=== PATIENT | male | born 1955 | race Caucasian/White ===

== ENCOUNTER 2017-05-26 16:30 | Inpatient (IN) | payer BC ==
[~2017-05-26] VITALS: Ht 167.6 cm; Wt 125.1 kg
[2017-05-26 16:38] VITALS: BP 168/93; PULSE 84; RESP 16; TEMP 98.4; O2SAT 96
--- NOTE | 2017-05-26 18:41 | PD ---
HPI . Patient here for complaints of feeling bloated & gassy. Chief Complaint: Abdominal Pain Time Seen by Provider: 18:19 Travel History International Travel<30 days: No Contact w/Intl Traveler<30days: No Traveled to known affect area: No History of Present Illness HPI Patient is a 62 year old male who presents with a 1 week history of abdominal pain. Patient reports that last Friday he went to an urgent care center due to constipation and mentioned to the physician of when he did have stools they were black as tar. The urgent care physician recommended that the patient get an abdominal CT scan. Patient locates the abdominal pain to his lower left side. The symptoms have been constant and increasing in severity. He describes the pain as a stabbing pain as well as feeling bloated and gassy. Patient denies any aggravating factors but mentions that Miralax, Pepto-Bismal, and Exlax have assisted in him passing small, soft, pebble, and slinky stools that he described as black. Patient denies taking any iron supplements nor having an appetite. Patient denies any nausea, vomiting, diarrhea, flatulence. Allergies-Medications (Allergen,Severity, Reaction): Coded Allergies: No Known Allergies (Verified Allergy, Unknown, 05/26/17) Data Data Last Documented VS Vital Signs Date Time Temp Pulse Resp B/P (MAP) Pulse Ox O2 Delivery O2 Flow Rate FiO2 05/26/17 16:38 98.4 84 16 168/93 (118) 96 Orders Orders Urinalysis - C+S If Indicated (05/26/17 18:05) Basic Metabolic Panel (Bmp) (05/26/17 18:33) Complete Blood Count With Diff (05/26/17 18:33) Ct Abd/Pel W Iv Contrast(Rout) (05/26/17 18:33) Iv Access Insert/Monitor (05/26/17 18:33) Sodium Chloride 0.9% Flush (Ns Flush) (05/26/17 18:45) Morphine Inj (Morphine Inj) (05/26/17 18:45) Ondansetron Inj (Zofran Inj) (05/26/17 18:45) Labs Laboratory Tests Test 05/26/17 18:45 Mary Boyce MD May 26, 2017 18:41
--- NOTE | 2017-05-26 18:41 | PD ---
HPI Chief Complaint: Abdominal Pain Time Seen by Provider: 18:19 Travel History International Travel<30 days: No Contact w/Intl Traveler<30days: No Traveled to known affect area: No History of Present Illness HPI Patient is a 62 year old male who presents with a 1 week history of abdominal pain. Patient reports going to an urgent care center due to constipation and mentioned to the physician that whenever he had stools they were black as tar. The physician recommended that the patient get an abdominal CT scan. He locates the pain to the lower left side of his abdomen. He describes the pain as stabbing in nature, as well as feeling bloated and gassy. Patient denies any aggravating factors but mentions that taking Miralax, Pepto, and Exlax help him produce soft, small, pebble, and slinky stools that are black. Patient denies taking any iron supplement nor any recent changes in diet. Patient denies any vomiting, diarrhea, or flatulence. PFSH Social History Tobacco Use: No Allergies-Medications (Allergen,Severity, Reaction): Coded Allergies: No Known Allergies (Verified Allergy, Unknown, 05/26/17) Reported Meds & Prescriptions Reported Meds & Active Scripts Active Reported Testosterone Enanthate Inj (Testosterone Enanthate) 200 Mg/Ml Inj 100 Mg IM Q15D Tamsulosin (Tamsulosin HCl) 0.4 Mg Cap 0.8 Mg PO HS Tamsulosin (Tamsulosin HCl) 0.4 Mg Cap 0.8 Mg PO HS Metoprolol Tartrate 25 Mg Tab 25 Mg PO DAILY Metformin (Metformin HCl) 500 Mg Tab 500 Mg PO BIDPC Meloxicam 15 Mg Tab 15 Mg PO DAILY Lisinopril 10 Mg Tab 10 Mg PO DAILY Glimepiride 2 Mg Tab 2 Mg PO BIDAC Amlodipine (Amlodipine Besylate) 10 Mg Tab 10 Mg PO DAILY Review of Systems Except as stated in HPI: all other systems reviewed are Neg Gastrointestinal: Positive: Abdominal Pain, Constipation, Loss of Appetite, No : Vomiting, Diarrhea Physical Exam Narrative GENERAL: Patient is awake and alert and in no acute distress. Markedly obese. SKIN: warm/dry. Normal color. HEAD: Normocephalic. Atraumatic. EYES: Pupils equal and round. No scleral icterus. No injection or drainage. ENT: No nasal bleeding or discharge. Mucous membranes pink and moist. NECK: Trachea midline. Full range of motion without pain.. CARDIOVASCULAR: Regular rate and rhythm. RESPIRATORY: No accessory muscle use. Clear to auscultation. Breath sounds equal bilaterally. GASTROINTESTINAL: Abdomen soft. Left lower quadrant tenderness. No guarding or rebound. Bowel sounds present. Nondistended. RECTAL: He is noted to have perianal brown stool. No masses palpated on digital exam. No significant stool load in the rectal vault. : No inguinal hernia palpated. MUSCULOSKELETAL: No obvious deformities. NEUROLOGICAL: Awake and alert. No obvious cranial nerve deficits. Motor grossly within normal limits. Normal speech. PSYCHIATRIC: Appropriate mood and affect; insight and judgment normal. Data Data Last Documented VS Vital Signs Date Time Temp Pulse Resp B/P (MAP) Pulse Ox O2 Delivery O2 Flow Rate FiO2 05/26/17 19:42 84 18 160/84 (109) 98 Room Air 05/26/17 16:38 98.4 Orders Orders Urinalysis - C+S If Indicated (05/26/17 18:05) Basic Metabolic Panel (Bmp) (05/26/17 18:33) Complete Blood Count With Diff (05/26/17 18:33) Iv Access Insert/Monitor (05/26/17 18:33) Sodium Chloride 0.9% Flush (Ns Flush) (05/26/17 18:45) Morphine Inj (Morphine Inj) (05/26/17 18:45) Ondansetron Inj (Zofran Inj) (05/26/17 18:45) Ct Abd/Pel W/O Iv Contrast (05/26/17 18:33) Tamsulosin (Flomax) (05/26/17 21:30) Tamsulosin (Flomax) (05/27/17 09:00) Bedside Glucose IGOR.CSUGAR (05/26/17 21:26) Blood Glucose Goal (Criteria) (05/26/17 21:26) Hypoglycemia 70 Mg/Dl Or < (05/26/17 21:26) Notify Dr: Other (05/26/17 21:26) Dextrose 50% In Amanda (Vial) Inj (D50w (Vi (05/26/17 21:30) Glucagon Inj (Glucagon Inj) (05/26/17 21:30) Insulin Aspart Supplemtl Scale (Novolog (05/27/17 08:00) Admit To Inpatient (05/26/17 ) Vital Signs (Adult) Q4H (05/26/17 21:26) Activity Oob Ad Ghazala (05/26/17 21:26) Intake + Output IGOR.QSHIFT (05/26/17 21:26) Diet Regular Basic (05/27/17 Breakfast) Sodium Chlor 0.9% 1000 Ml Inj (Ns 1000 M (05/26/17 22:00) Sodium Chloride 0.9% Flush (Ns Flush) (05/26/17 21:30) Sodium Chloride 0.9% Flush (Ns Flush) (05/27/17 09:00) Ondansetron Inj (Zofran Inj) (05/26/17 22:00) Comprehensive Metabolic Panel (05/27/17 06:00) Complete Blood Count With Diff (05/27/17 06:00) Case Management Consult (05/26/17 21:26) Scd Bilateral/Knee High IGOR.BID (05/26/17 21:26) Siddhartha Bilateral/Knee High IGOR.QSHIFT (05/26/17 21:28) Acetaminophen (Tylenol) (05/26/17 22:00) Acetamin-Hydrocod 325-5 Mg ([place] 5-325 (05/26/17 22:00) Morphine Inj (Morphine Inj) (05/26/17 22:00) Docusate Sodium-Senna (Cadence-Colace) (05/27/17 09:00) Magnesium Hydroxide Liq (Milk Of Magnesi (05/26/17 22:00) Sennosides (Senokot) (05/26/17 22:00) Bisacodyl Supp (Dulcolax Supp) (05/26/17 22:00) Lactulose Liq (Lactulose Liq) (05/26/17 22:00) Inpatient Certification (05/26/17 ) Consult Urology (05/26/17 ) Glimepiride (Amaryl) (05/27/17 07:00) Metoprolol Tartrate (Lopressor) (05/27/17 09:00) Admit Order (Ed Use Only) (05/26/17 21:35) Admit Order (Ed Use Only) (05/26/17 21:37) Labs Laboratory Tests Test 05/26/17 18:45 05/26/17 19:40 White Blood Count 8.0 TH/MM3 Red Blood Count 4.83 MIL/MM3 Hemoglobin 12.9 GM/DL Hematocrit 40.6 % Mean Corpuscular Volume 84.1 FL Mean Corpuscular Hemoglobin 26.8 PG Mean Corpuscular Hemoglobin Concent 31.9 % Red Cell Distribution Width 17.0 % Platelet Count 313 TH/MM3 Mean Platelet Volume 7.3 FL Neutrophils (%) (Auto) 68.7 % Lymphocytes (%) (Auto) 15.4 % Monocytes (%) (Auto) 10.9 % Eosinophils (%) (Auto) 4.5 % Basophils (%) (Auto) 0.5 % Neutrophils # (Auto) 5.5 TH/MM3 Lymphocytes # (Auto) 1.2 TH/MM3 Monocytes # (Auto) 0.9 TH/MM3 Eosinophils # (Auto) 0.4 TH/MM3 Basophils # (Auto) 0.0 TH/MM3 CBC Comment DIFF FINAL Differential Comment Blood Urea Nitrogen 42 MG/DL Creatinine 2.60 MG/DL Random Glucose 90 MG/DL Calcium Level 9.2 MG/DL Sodium Level 137 MEQ/L Potassium Level 4.4 MEQ/L Chloride Level 102 MEQ/L Carbon Dioxide Level 29.0 MEQ/L Anion Gap 6 MEQ/L Estimat Glomerular Filtration Rate 25 ML/MIN Urine Color YELLOW Urine Turbidity CLEAR Urine pH 5.5 Urine Specific [place] 1.023 Urine Protein TRACE mg/dL Urine Glucose (UA) NEG mg/dL Urine Ketones NEG mg/dL Urine Occult Blood NEG Urine Nitrite NEG Urine Bilirubin NEG Urine Leukocyte Esterase NEG Urine WBC 0-2 /hpf Urine Squamous Epithelial Cells 0-5 /hpf Urine Amorphous Sediment SMALL Urine Mucus OCC /lpf Microscopic Urinalysis Comment CULT NOT INDICATED MDM Medical Decision Making Medical Screen Exam Complete: Yes Emergency Medical Condition: Yes Differential Diagnosis Differential diagnosis of abdominal pain includes but is not limited to gastritis, pancreatitis, hepatitis, gastroenteritis, gallbladder disease, constipation, urinary retention, UTI, peptic ulcer disease, diverticulitis or appendicitis Narrative Course Patient presents complaining with left lower quadrant abdominal pain. He has some tenderness of the left lower quadrant on exam. CT is pending as are routine abdominal pain labs. Care was turned over to Dr. Choe at 7:00 PM [facility] Point of Care Internal Pos. & Neg. Controls: Passed Fecal Specimen Occult Blood: Negative Diagnosis Primary Impression: Abdominal pain Qualified Codes: R10.32 - Left lower quadrant pain Condition: Stable Mary Boyce MD May 26, 2017 18:41
[2017-05-26] MEDS ORDERED: MORPHINE SULFATE 2 MG/ML INJ IV PUSH ONE (18:45)
[2017-05-26] MEDS ORDERED: ONDANSETRON HCL 4 MG/2 ML VIAL IV PUSH ONE (18:45)
[2017-05-26 18:54] LABS: AUTOMATED NEUTROPHIL # 5.5 TH/MM3 (1.8-7.7); BASOPHIL % 0.5 % (0.0-2.0); EOSINOPHIL # 0.4 TH/MM3 (0-0.4); EOSINOPHIL % 4.5 % (0.0-4.0); HEMATOCRIT 40.6 % (39.0-51.0); HEMOGLOBIN 12.9 GM/DL (13.0-17.0); LYMPH % 15.4 % (9.0-44.0); LYMPHOCYTE # 1.2 TH/MM3 (1.0-4.8); MEAN CELL VOLUME 84.1 FL (80.0-100.0); MEAN CORPUSCULAR HEMOGLOBIN 26.8 PG (27.0-34.0); MEAN CORPUSCULAR HGB CONC 31.9 % (32.0-36.0); MEAN PLATELET VOLUME 7.3 FL (7.0-11.0); MONO % 10.9 % (0.0-8.0); MONOCYTE # 0.9 TH/MM3 (0-0.9); NEUT % 68.7 % (16.0-70.0); PLATELET COUNT 313 TH/MM3 (150-450); RED BLOOD COUNT 4.83 MIL/MM3 (4.50-5.90)
[2017-05-26 19:06] LABS: CALCIUM 9.2 MG/DL (8.5-10.1)
[2017-05-26] MEDS ORDERED: LISI10TA3 PO (19:06)
[2017-05-26] MEDS ORDERED: TEST200I13 IM (19:06)
[2017-05-26] MEDS ORDERED: METO25TA3 PO (19:06)
[2017-05-26] MEDS ORDERED: TAMS0.4C4 PO (19:06)
[2017-05-26] MEDS ORDERED: AMLO10TA2 PO (19:06)
[2017-05-26] MEDS ORDERED: MELO15TA20 PO (19:06)
[2017-05-26] MEDS ORDERED: METF500T PO (19:06)
[2017-05-26] MEDS ORDERED: GLIM2TAB PO (19:06)
[2017-05-26 19:10] LABS: CREATININE 2.6 MG/DL (0.60-1.30)
[2017-05-26 19:42] VITALS: BP 160/84; PULSE 84; RESP 18; O2SAT 98
[2017-05-26 19:50] LABS: BILIRUBIN, URINE NEG (NEG); BLOOD, URINE NEG (NEG); GLUCOSE,URINE NEG (NEG); KETONE, URINE NEG (NEG); NITRITE,URINE NEG (NEG); PH, URINE 5.5 (5.0-8.5); URINE LEUKOCYTE ESTERASE NEG (NEG)
[2017-05-26 20:10] LABS: URINE COLOR YELLOW (YELLW/STRAW)
[2017-05-26 20:11] LABS: AMORPHOUS SEDIMENT, URINE SMALL; SQUAMOUS EPITHELIAL CELL URINE 0-5 /hpf (0-5); WBC, URINE 0-2 /hpf (0-5)
[2017-05-26 20:12] LABS: MUCUS URINE OCC /lpf (OCC)
--- NOTE | 2017-05-26 20:32 | RADRPT ---
EXAM DATE/TIME: 05/26/2017 19:43 [facility] COMPARISON: No previous studies available for comparison. INDICATIONS : Left lower quadrant abdominal pain. Constipation. ORAL CONTRAST: No oral contrast ingested. RADIATION DOSE: 22.39 CTDIvol (mGy) MEDICAL HISTORY : Diabetes mellitus type 2. Hypertension. SURGICAL HISTORY : Appendectomy. ENCOUNTER: Initial ACUITY: 1 day PAIN SCALE: 5/10 LOCATION: Left lower quadrant TECHNIQUE: Volumetric scanning of the abdomen and pelvis was performed. Using automated exposure control and ad justment of the mA and/or kV according to patient size, radiation dose was kept as low as reasonably achievable to obtain optimal diagnostic quality images. DICOM format image data is available electro nically for review and comparison. FINDINGS: There is evidence of acute obstructive uropathy of the left mid ureter secondary to a 4 mm calcified calculus resulting in mild ureteral pelvocaliectasis on the left. There is a 5 mm calcified lower freddy e nonobstructing left renal calculus. There is a 2.3 cm right adrenal nodule which may represent an a drenal adenoma. The left adrenal gland is unremarkable. Evaluation of the solid organs of the abdomen is limited by lack of intravenous contrast. Uncomplicated colonic diverticulosis is noted. No acute diverticulitis is noted. The prostate gland is enlarged. Degenerative changes are noted throughout th e thoracolumbar spine. CONCLUSION: 1. Acute obstructive uropathy of the left mid ureter secondary to a 4 mm calcified calculus resulting in mild ureteral pelvocaliectasis on the left. 2. 5 mm calcified nonobstructing lower pole left renal calculus. 3. 2.3 cm right adrenal nodule consistent with possible adrenal adenoma. 4. Uncomplicated colonic diverticulosis. 5. Degenerative changes throughout the thoracic and lumbar spine. 6. Enlarged prostate. Alirio Easton MD on May 26, 2017 at 20:26 Board Certified Radiologist. This report was verified electronically.
--- NOTE | 2017-05-26 21:20 | PD ---
Physical Exam Time Seen by Provider: 21:[address] Boyce left this patient with me to check the results of the CT scan and make disposition. The patient does not have a history of renal insufficiency and does not have a history of kidney stones. It is now 9:13 PM and the pain as a 4/10. Data Data Last Documented VS Vital Signs Date Time Temp Pulse Resp B/P (MAP) Pulse Ox O2 Delivery O2 Flow Rate FiO2 05/26/17 19:42 84 18 160/84 (109) 98 Room Air 05/26/17 16:38 98.4 Orders Orders Urinalysis - C+S If Indicated (05/26/17 18:05) Basic Metabolic Panel (Bmp) (05/26/17 18:33) Complete Blood Count With Diff (05/26/17 18:33) Iv Access Insert/Monitor (05/26/17 18:33) Sodium Chloride 0.9% Flush (Ns Flush) (05/26/17 18:45) Morphine Inj (Morphine Inj) (05/26/17 18:45) Ondansetron Inj (Zofran Inj) (05/26/17 18:45) Ct Abd/Pel W/O Iv Contrast (05/26/17 18:33) Tamsulosin (Flomax) (05/26/17 21:30) Tamsulosin (Flomax) (05/27/17 09:00) Bedside Glucose IGOR.CSUGAR (05/26/17 21:26) Blood Glucose Goal (Criteria) (05/26/17 21:26) Hypoglycemia 70 Mg/Dl Or < (05/26/17 21:26) Notify Dr: Other (05/26/17 21:26) Dextrose 50% In Amanda (Vial) Inj (D50w (Vi (05/26/17 21:30) Glucagon Inj (Glucagon Inj) (05/26/17 21:30) Low Novolog Scale (05/27/17 08:00) Admit To Inpatient (05/26/17 ) Vital Signs (Adult) Q4H (05/26/17 21:26) Activity Oob Ad Ghazala (05/26/17 21:26) Intake + Output IGOR.QSHIFT (05/26/17 21:26) Diet Regular Basic (05/27/17 Breakfast) Sodium Chlor 0.9% 1000 Ml Inj (Ns 1000 M (05/26/17 21:26) Sodium Chloride 0.9% Flush (Ns Flush) (05/26/17 21:30) Sodium Chloride 0.9% Flush (Ns Flush) (05/27/17 09:00) Ondansetron Inj (Zofran Inj) (05/26/17 21:30) Comprehensive Metabolic Panel (05/27/17 06:00) Complete Blood Count With Diff (05/27/17 06:00) Case Management Consult (05/26/17 21:26) Scd Bilateral/Knee High IGOR.BID (05/26/17 21:26) Siddhartha Bilateral/Knee High IGOR.QSHIFT (05/26/17 21:28) Acetaminophen (Tylenol) (05/26/17 21:30) Acetamin-Hydrocod 325-5 Mg ([place] 5-325 (05/26/17 21:30) Morphine Inj (Morphine Inj) (05/26/17 21:30) Docusate Sodium-Senna (Cadence-Colace) (05/27/17 09:00) Magnesium Hydroxide Liq (Milk Of Magnesi (05/26/17 21:30) Sennosides (Senokot) (05/26/17 21:30) Bisacodyl Supp (Dulcolax Supp) (05/26/17 21:30) Lactulose Liq (Lactulose Liq) (05/26/17 21:30) Inpatient Certification (05/26/17 ) Consult Urology (05/26/17 ) Glimepiride (Amaryl) (05/27/17 07:00) Metoprolol Tartrate (Lopressor) (05/27/17 09:00) Labs Laboratory Tests Test 05/26/17 18:45 05/26/17 19:40 White Blood Count 8.0 TH/MM3 Red Blood Count 4.83 MIL/MM3 Hemoglobin 12.9 GM/DL Hematocrit 40.6 % Mean Corpuscular Volume 84.1 FL Mean Corpuscular Hemoglobin 26.8 PG Mean Corpuscular Hemoglobin Concent 31.9 % Red Cell Distribution Width 17.0 % Platelet Count 313 TH/MM3 Mean Platelet Volume 7.3 FL Neutrophils (%) (Auto) 68.7 % Lymphocytes (%) (Auto) 15.4 % Monocytes (%) (Auto) 10.9 % Eosinophils (%) (Auto) 4.5 % Basophils (%) (Auto) 0.5 % Neutrophils # (Auto) 5.5 TH/MM3 Lymphocytes # (Auto) 1.2 TH/MM3 Monocytes # (Auto) 0.9 TH/MM3 Eosinophils # (Auto) 0.4 TH/MM3 Basophils # (Auto) 0.0 TH/MM3 CBC Comment DIFF FINAL Differential Comment Blood Urea Nitrogen 42 MG/DL Creatinine 2.60 MG/DL Random Glucose 90 MG/DL Calcium Level 9.2 MG/DL Sodium Level 137 MEQ/L Potassium Level 4.4 MEQ/L Chloride Level 102 MEQ/L Carbon Dioxide Level 29.0 MEQ/L Anion Gap 6 MEQ/L Estimat Glomerular Filtration Rate 25 ML/MIN Urine Color YELLOW Urine Turbidity CLEAR Urine pH 5.5 Urine Specific [place] 1.023 Urine Protein TRACE mg/dL Urine Glucose (UA) NEG mg/dL Urine Ketones NEG mg/dL Urine Occult Blood NEG Urine Nitrite NEG Urine Bilirubin NEG Urine Leukocyte Esterase NEG Urine WBC 0-2 /hpf Urine Squamous Epithelial Cells 0-5 /hpf Urine Amorphous Sediment SMALL Urine Mucus OCC /lpf Microscopic Urinalysis Comment CULT NOT INDICATED MDM Medical Record Reviewed: Yes Supervised Visit with PIERCE: No Interpretation(s) The CT abdomen/pelvis without IV contrast shows acute extremity uropathy of the left mid ureter secondary to a 4 mm calculus. Also noted is a 5 mm calcified nonobstructing lower pole left renal calculus. Also noted is a 2.3 cm right adrenal nodule, likely adrenal adenoma. It also shows uncomplicated colonic diverticulosis. Degenerative changes are noted throughout the thoracic and lumbar spine and he has an enlarged prostate. The basic metabolic profile shows a BUN of 42, creatinine 2.6 with GFR of 25. The rest of the basic metabolic profile is normal. Urinalysis is normal and culture is not indicated. The CBC shows a hemoglobin of 12.9 but is otherwise unremarkable. Differential Diagnosis Diverticulitis, urinary stone, urinary tract infection, colitis Narrative Course After 4 mg of morphine the patient's pain is around a 2/10. It is now 9:18 PM. Unfortunately, the patient did not know that he had renal insufficiency. The patient has no local primary care physician. 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 He plans to stay in the area through June. The patient has obstructive uropathy with acute renal insufficiency. He will be admitted to [facility] and, hopefully, will be seen by a fig caprifier while he is in the hospital. Diagnosis Primary Impression: Obstructive uropathy Additional Impression: Acute renal insufficiency Admitting Information Admitting Physician Requests: Admit Condition: Stable Stuart Choe MD May 26, 2017 21:20
[2017-05-26] MEDS ORDERED: DEXTROSE 50% IN WATER 50 ML VIAL(D50) IV PUSH PRN (21:30)
[2017-05-26] MEDS ORDERED: SODIUM CHLORIDE 0.9% FLUSH 10 ML FLUSH IV FLUSH PRN (21:30)
[2017-05-26] MEDS ORDERED: TAMSULOSIN HCL 0.4 MG CAP PO ONE (21:30)
[2017-05-26] MEDS ORDERED: GLUCAGON 1 MG/ML VIAL OTHER PRN (21:30)
[2017-05-26 22:00] VITALS: BP 166/82; PULSE 78; RESP 18; O2SAT 98
[2017-05-26] MEDS ORDERED: ACETAMINOPHEN/HYDROcodone 325 MG/5 MG TAB PO PRN (22:00)
[2017-05-26] MEDS ORDERED: ONDANSETRON HCL 4 MG/2 ML VIAL IVP PRN (22:00)
[2017-05-26] MEDS ORDERED: SENNOSIDES 8.6 MG TAB PO PRN (22:00)
[2017-05-26] MEDS ORDERED: LACTULOSE SYRUP 20 GM/30 ML CUP PO PRN (22:00)
[2017-05-26] MEDS ORDERED: ACETAMINOPHEN 325 MG TAB PO PRN (22:00)
[2017-05-26] MEDS ORDERED: BISACODYL 10 MG SUPP RECTAL PRN (22:00)
[2017-05-26] MEDS: SODIUM CHLOR 0.9% 1000 ML INJ 1,000 ML IV SCH (23:14)
[2017-05-26] MEDS: MORPHINE SULFATE 2 MG/ML INJ IV PUSH PRN (23:15)
[2017-05-27] VITALS (7 sets, daily range): BP systolic 144–188; BP diastolic 74–106; PULSE 71–89; RESP 18–20; TEMP 96.8–99.5; O2SAT 93–98
[2017-05-27] MEDS: MAGNESIUM HYDROXIDE SUSP 30 ML CUP PO PRN (02:01)
[2017-05-27] MEDS: SODIUM CHLORIDE 0.9% FLUSH 10 ML FLUSH IV FLUSH PRN ×2 (02:02→02:14)
[2017-05-27] MEDS: MORPHINE SULFATE 2 MG/ML INJ IV PUSH PRN ×2 (02:14→21:29)
[2017-05-27] MEDS: GLIMEPIRIDE 2 MG TAB PO SCH ×2 (06:03→15:18)
[2017-05-27 06:47] LABS: AUTOMATED NEUTROPHIL # 4.5 TH/MM3 (1.8-7.7); BASOPHIL % 0.5 % (0.0-2.0); EOSINOPHIL # 0.3 TH/MM3 (0-0.4); EOSINOPHIL % 5.1 % (0.0-4.0); HEMATOCRIT 34.5 % (39.0-51.0); LYMPH % 18.3 % (9.0-44.0); LYMPHOCYTE # 1.2 TH/MM3 (1.0-4.8); MEAN CELL VOLUME 83.2 FL (80.0-100.0); MEAN CORPUSCULAR HEMOGLOBIN 26.5 PG (27.0-34.0); MEAN CORPUSCULAR HGB CONC 31.9 % (32.0-36.0); MEAN PLATELET VOLUME 7.9 FL (7.0-11.0); MONOCYTE # 0.7 TH/MM3 (0-0.9); NEUT % 66.1 % (16.0-70.0); PLATELET COUNT 271 TH/MM3 (150-450); RED BLOOD COUNT 4.15 MIL/MM3 (4.50-5.90); RED CELL DISTRIBUTION WIDTH 15.7 % (11.6-17.2); WHITE BLOOD COUNT 6.7 TH/MM3 (4.0-11.0)
[2017-05-27 06:55] LABS: CHLORIDE 102 MEQ/L (98-107); SODIUM (NA) 137 MEQ/L (136-145)
[2017-05-27 07:03] LABS: CALCIUM 8.4 MG/DL (8.5-10.1)
[2017-05-27 07:04] LABS: ALBUMIN 3.1 GM/DL (3.4-5.0); BICARBONATE 29.1 MEQ/L (21.0-32.0); BLOOD UREA NITROGEN 35 MG/DL (7-18); GLUCOSE,RANDOM 152 MG/DL (74-106)
[2017-05-27 07:06] LABS: ALT (GPT) 33 U/L (12-78); AST (GOT) 17 U/L (15-37)
[2017-05-27 07:07] LABS: GLOMERULAR FILTRATION RATE 27 ML/MIN (>89)
[2017-05-27 07:08] LABS: TOTAL BILIRUBIN ADULT 0.9 MG/DL (0.2-1.0); TOTAL PROTEIN 7.3 GM/DL (6.4-8.2)
[2017-05-27 07:09] LABS: ALKALINE PHOSPHATASE 76 U/L (45-117)
[2017-05-27] MEDS: INSULIN ASPART SUPPLEMENTAL SCALE SQ SCH ×4 (08:00→21:00)
[2017-05-27] MEDS: SODIUM CHLOR 0.9% 1000 ML INJ 1,000 ML IV SCH ×2 (08:00→21:27)
[2017-05-27] MEDS: DOCUSATE SODIUM 50 MG/SENNA 8.6 MG TAB PO SCH ×2 (08:07→21:27)
[2017-05-27] MEDS: SODIUM CHLORIDE 0.9% FLUSH 10 ML FLUSH IV FLUSH SCH ×2 (08:08→21:27)
[2017-05-27] MEDS: TAMSULOSIN HCL 0.4 MG CAP PO SCH (08:08)
[2017-05-27] MEDS ORDERED: METOPROLOL TARTRATE 25 MG TAB PO SCH (09:00)
--- NOTE | 2017-05-27 12:47 | HHI.HP ---
[facility] Admission Diagnosis obstructive uropathy, acute renal insufficiency Diagnoses: (1) Obstructive uropathy Diagnosis: Principal (2) Abdominal pain Diagnosis: Principal (3) Acute renal insufficiency Diagnosis: Principal Chief Complaint: Abdominal pain, dark color stools Travel History International Travel<30 Days: No Contact w/Intl Traveler <30 Da: No Traveled to Known Affected Are: No History of Present Illness Written by Fred Choe, acting as scribe for Dr. Gonzalez on 05/27/17 at 12: 26. 62 year-old male with known history of hypertension, diabetes, enlarged prostate, low testosterone who presented to the hospital the request of urgent care physician because of dark color stools and abdominal pain. Patient indicates that his symptoms started one week ago. After going out and having a steak dinner, uzbek fries, clam chowder, 2 beers, 2 Jell-O shots he woke up at 3 AM in the morning with severe/sudden onset of stabbing left lower quadrant abdominal pain. Patient went to the bathroom and tried to have a bowel movement without success. He had some nausea and dry heaves without any improvement of his abdominal pain. Patient just thought he had some food poisoning from the clam chowder and constipated. The patient indicates that he normally has a bowel movement daily. He purchased some MiraLAX, Pepto-Bismol, Ex -Lax and used the medications. Over the next couple days he had noticed that he had been having abdominal discomfort with distention, bloating without any bowel movement. 2 days later the patient finally did have a bowel movement when he stated that his stools were black in coloration. The patient goes to a local urgent care to get his every 2 week testosterone injection. When he was there he spoke with the physician about his abdominal discomfort, constipation, dark color stools. Because of the mention of dark color stools it was recommended by the urgent care physician that the patient go to the ER for evaluation. Patient presents emergency department had workup done. CT the abdomen did indicate obstructive uropathy of the left ureter. Hemoccult was performed which was negative. Laboratory studies do indicate azotemia, acute versus chronic is unknown. Patient was recommended admission for the obstructive uropathy with urological consultation. 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 He did see his primary medical doctor prior to leaving [place] and at that time they were anticipating scheduling him for colonoscopy when he return in June. At the time evaluating the patient patient states that his pain is much improved. 2/10 on a pain scale. He has not had a bowel movement today. Review of Systems Gastrointestinal: COMPLAINS OF: Abdominal pain, Black stools, Constipation Except as stated in HPI: all other systems reviewed are Neg Past Family Social History Past Medical History Hypertension Diabetes Low testosterone Past Surgical History Appendectomy Reported Medications Reported Meds & Active Scripts Active Reported Testosterone Enanthate Inj (Testosterone Enanthate) 200 Mg/Ml Inj 100 Mg IM Q15D Tamsulosin (Tamsulosin HCl) 0.4 Mg Cap 0.8 Mg PO HS Tamsulosin (Tamsulosin HCl) 0.4 Mg Cap 0.8 Mg PO HS Metoprolol Tartrate 25 Mg Tab 25 Mg PO DAILY Metformin (Metformin HCl) 500 Mg Tab 500 Mg PO BIDPC Meloxicam 15 Mg Tab 15 Mg PO DAILY Lisinopril 10 Mg Tab 10 Mg PO DAILY Glimepiride 2 Mg Tab 2 Mg PO BIDAC Amlodipine (Amlodipine Besylate) 10 Mg Tab 10 Mg PO DAILY Allergies: Coded Allergies: No Known Allergies (Verified Allergy, Unknown, 05/26/17) Family History Reviewed and unremarkable. Patient states the mother father lived to their 80s in good health. Denies any heart disease, diabetes Social History Patient denies any tobacco use, illicit drug use. Does use alcohol occasionally Physical Exam Vital Signs Vital Signs Date Time Temp Pulse Resp B/P (MAP) Pulse Ox O2 Delivery O2 Flow Rate FiO2 05/27/17 08:00 96.8 75 20 163/83 (109) 93 05/27/17 01:30 99.5 71 18 147/93 (111) 93 05/27/17 01:18 82 18 98 05/27/17 01:17 82 18 98 Room Air 05/27/17 00:10 78 18 154/80 (104) 98 Room Air 05/26/17 22:00 78 18 166/82 (110) 98 Room Air 05/26/17 19:42 84 18 160/84 (109) 98 Room Air 05/26/17 16:38 98.4 84 16 168/93 (118) 96 Physical Exam GENERAL: Well-developed, well-nourished. alert and orientated HEENT: Head is normocephalic without any lesions or masses noted. Facial features are symmetric. Eyes: Pupils equal round reactive to light. Extraocular muscles are intact. Conjunctivae were clear. Oropharyngeal: Pharynx without any erythema edema. NECK: Supple without any masses. Trachea midline no deviation. CARDIAC: Regular rhythm, regular rate. S1/S2 are heard. No murmurs LUNGS: Clear to auscultation bilaterally. No wheeze, rhonchi or rales. No use of accessory muscles on inspiration or expiration. ABDOMEN: Soft, some discomfort w deep palpation of the left quadrant. Nondistended. Bowel sounds heard in all 4 quadrants. Negative rebound, negative guarding. no CVA tenderness EXTREMITIES: No edema, pulses are equal bilaterally. No cyanosis or clubbing NEUROLOGY: Mood and affect appear appropriate.moves all his extremities Laboratory Laboratory Tests Test 05/26/17 18:45 05/26/17 19:40 05/27/17 06:00 White Blood Count 8.0 6.7 Red Blood Count 4.83 4.15 Hemoglobin 12.9 11.0 Hematocrit 40.6 34.5 Mean Corpuscular Volume 84.1 83.2 Mean Corpuscular Hemoglobin 26.8 26.5 Mean Corpuscular Hemoglobin Concent 31.9 31.9 Red Cell Distribution Width 17.0 15.7 Platelet Count 313 271 Mean Platelet Volume 7.3 7.9 Neutrophils (%) (Auto) 68.7 66.1 Lymphocytes (%) (Auto) 15.4 18.3 Monocytes (%) (Auto) 10.9 10.0 Eosinophils (%) (Auto) 4.5 5.1 Basophils (%) (Auto) 0.5 0.5 Neutrophils # (Auto) 5.5 4.5 Lymphocytes # (Auto) 1.2 1.2 Monocytes # (Auto) 0.9 0.7 Eosinophils # (Auto) 0.4 0.3 Basophils # (Auto) 0.0 0.0 CBC Comment DIFF FINAL DIFF FINAL Differential Comment Blood Urea Nitrogen 42 35 Creatinine 2.60 2.40 Random Glucose 90 152 Calcium Level 9.2 8.4 Sodium Level 137 137 Potassium Level 4.4 4.4 Chloride Level 102 102 Carbon Dioxide Level 29.0 29.1 Anion Gap 6 6 Estimat Glomerular Filtration Rate 25 27 Urine Color YELLOW Urine Turbidity CLEAR Urine pH 5.5 Urine Specific [place] 1.023 Urine Protein TRACE Urine Glucose (UA) NEG Urine Ketones NEG Urine Occult Blood NEG Urine Nitrite NEG Urine Bilirubin NEG Urine Leukocyte Esterase NEG Urine WBC 0-2 Urine Squamous Epithelial Cells 0-5 Urine Amorphous Sediment SMALL Urine Mucus OCC Microscopic Urinalysis Comment CULT NOT INDICATED Total Protein 7.3 Albumin 3.1 Alkaline Phosphatase 76 Aspartate Amino Transf (AST/SGOT) 17 Alanine Aminotransferase (ALT/SGPT) 33 Total Bilirubin 0.9 Result Diagram: 05/27/1700 05/27/17 06 Imaging Last Impressions Abdomen/Pelvis CT 05/26/17 1833 Signed Impressions: Service Date/Time: Friday, May 26, 2017 19:43 - CONCLUSION: 1. Acute obstructive uropathy of the left mid ureter secondary to a 4 mm calcified calculus resulting in mild ureteral pelvocaliectasis on the left. 2. 5 mm calcified nonobstructing lower pole left renal calculus. 3. 2.3 cm right adrenal nodule consistent with possible adrenal adenoma. 4. Uncomplicated colonic diverticulosis. 5. Degenerative changes throughout the thoracic and lumbar spine. 6. Enlarged prostate. MD Jim Saez VTE Risk Assessment Caprini VTE Risk Assessment: Mod/High Risk (score >= 2) Caprini Risk Assessment Model Point Value = 1 Point Value = 2 Point Value = 3 Point Value = 5 Age 41-60 Minor surgery BMI > 25 kg/m2 Swollen legs Varicose veins or History of unexplained or recurrent spontaneous Oral contraceptives or hormone replacement Sepsis (< 1 month) Serious lung disease, including pneumonia (< 1 month) Abnormal pulmonary function Acute myocardial infarction Congestive heart failure (< 1 month) History of inflammatory bowel disease Medical patient at bed rest Age 61-74 Arthroscopic surgery Major open surgery (> 45 min) Laparoscopic surgery (> 45 min) Malignancy Confined to bed (> 72 hours) Immobilizing plaster cast Central venous access Age >= 75 History of VTE Family history of VTE Factor V Leiden Prothrombin [id number] Lupus anticoagulant Anticardiolipin antibodies Elevated serum homocysteine Heparin-induced thrombocytopenia Other congenital or acquired thrombophilia Stroke (< 1 month) Elective arthroplasty Hip, pelvis, or leg fracture Acute spinal cord injury (< 1 month) Prophylaxis Regimen Total Risk Factor Score Risk Level Prophylaxis Regimen 0-1 Low Early ambulation 2 Moderate Order ONE of the following: *Sequential Compression Device (SCD) *Heparin 5000 units SQ BID 3-4 Higher Order ONE of the following medications: *Heparin 5000 units SQ TID *Enoxaparin/Lovenox 40 mg SQ daily (WT < 150 kg, CrCl > 30 mL/min) *Enoxaparin/Lovenox 30 mg SQ daily (WT < 150 kg, CrCl > 10-29 mL/min) *Enoxaparin/Lovenox 30 mg SQ BID (WT < 150 kg, CrCl > 30 mL/min) AND/OR *Sequential Compression Device (SCD) 5 or more Highest Order ONE of the following medications: *Heparin 5000 units SQ TID (Preferred with Epidurals) *Enoxaparin/Lovenox 40 mg SQ daily (WT < 150 kg, CrCl > 30 mL/min) *Enoxaparin/Lovenox 30 mg SQ daily (WT < 150 kg, CrCl > 10-29 mL/min) *Enoxaparin/Lovenox 30 mg SQ BID (WT < 150 kg, CrCl > 30 mL/min) AND *Sequential Compression Device (SCD) Assessment and Plan Assessment and Plan 62-year-old male who presented to hospital with abdominal pain, dark color stools at the quest of urgent care physician Obstructive uropathy CT scan does indicate obstructive uropathy and left mid ureter secondary 4 mm calcified calculus and enlarged prostate Continue IV fluids, pain control Strain all urine Urology consulted for recommendations Azotemia, unknown chronic versus acute from obstructive uropathy CT scan does not indicate any hydronephrosis, Continue follow renal function Continue IV hydration Could be chronic kidney disease from hypertension, diabetes follow-up renal bladder ultrasound Dark color stools Most Likely secondary to Pepto-Bismol use Hemoccult was negative Monitor hemoglobin and hematocrit Patient already going to be scheduled in [place] for colonoscopy upon his return Avoid NSAIDs Hypertension Home medication has been continued Lisinopril on hold due to renal function Diabetes Accu-Cheks with sliding scale insulin Glimepiride continued Diabetic diet Enlarged prostate Flomax continued DVT prevention Sequential compression devices, avoid chemical prophylaxis at this time due to possible need for surgical intervention This note was transcribed by kaleb Choe. I, Dr. Sil Gonzalez personally performed the history, physical exam, and medical decision making; and confirmed the accuracy of the information in the transcribed note. Authenticated by Dr. Sil Gonzalez on 05/27/17 at 12:26 Code Status Full Code Discussed Condition With Patient, nursing staff Physician Certification 2 Midnight Certification Type: Admission for Inpatient Services Order for Inpatient Services The services are ordered in accordance with Medicare regulations or non- Medicare payer requirements, as applicable. In the case of services not specified as inpatient-only, they are appropriately provided as inpatient services in accordance with the 2-midnight benchmark. Estimated LOS (days): 2 days is the estimated time the patient will need to remain in the hospital, assuming treatment plan goals are met and no additional complications. Post-Hospital Plan: Not yet determined Problem Qualifiers (1) Abdominal pain: Qualified Codes: R10.32 - Left lower quadrant pain Fred Choe May 27, 2017 12:47 Sil Gonzalez MD May 27, 2017 16:21
--- NOTE | 2017-05-27 16:03 | RADRPT ---
EXAM DATE/TIME: 05/27/2017 14:35 [facility] COMPARISON: No previous studies available for comparison. INDICATIONS : Abnormal labs. MEDICAL HISTORY : Hypertension. Renal calculi. Arthritis. Diabetes. SURGICAL HISTORY : Appendectomy. ENCOUNTER: Initial ACUITY: 2 days PAIN SCORE: 4/10 LOCATION: Bilateral flank MEASUREMENTS: RIGHT KIDNEY: 12.7 x 6.3 x 6.5 cm LEFT KIDNEY: 14.1 x 5.7 x 7.9 cm FINDINGS: RIGHT KIDNEY: Renal cortex is normal in thickness and borderline increased echotexture. No hydronephrosis, stone, or mass. LEFT KIDNEY: Renal cortex is normal in thickness and borderline increased echotexture. No mass. Slight prominenc e left collecting system. Echogenic calculus lower pole measures 10 mm. BLADDER: Within normal limits given the degree of distension. CONCLUSION: 1. Mild prominence left collecting system. 2. Nonobstructing calculus lower pole left kidney measures 10 mm. 3. Kidneys are borderline echogenic which can be seen with medical renal disease. Grady Hodge MD on May 27, 2017 at 15:59 Board Certified Radiologist. This report was verified electronically.
[2017-05-27] MEDS ORDERED: TAMS0.4C4 PO (17:17)
[2017-05-27] MEDS ORDERED: PHEN0.4T PO (17:17)
[2017-05-27] MEDS ORDERED: PERC5TAB12 PO (17:17)
--- NOTE | 2017-05-27 17:20 | PD.CONS ---
[facility] Service Urology Consult Requested By Dr. Jc Reason for Consult Left ureteral calculus Primary Care Physician Unknown Diagnosis: (1) Obstructive uropathy ICD Code: N13.9 - Obstructive and reflux uropathy, unspecified (2) Abdominal pain ICD Code: R10.9 - Unspecified abdominal pain (3) Acute renal insufficiency ICD Code: N28.9 - Disorder of kidney and ureter, unspecified History of Present Illness 62-year-old gentleman presented to the emergency room acute onset left flank pain. Workup included a CT scan stone protocol that demonstrated a 4 mm mid left ureteral calculus as well as a 5 mm left lower pole renal calculus. Once that the left flank pain started approximately 1 week prior to admission. When the symptoms became severe he presented to the emergency room for evaluation. Patient does have a urologic history for BPH and low testosterone. He denies a prior history of renal calculi. At the time of consultation, the patient's pain was adequately controlled. He continued to complain of some discomfort involving the tip of his penis and left testicle. Review of Systems Constitutional: DENIES: Fever, Chills Cardiovascular: DENIES: Chest pain Gastrointestinal: COMPLAINS OF: Abdominal pain (left lower quadrant) Genitourinary: DENIES: Hematuria Musculoskeletal: COMPLAINS OF: Back pain (left side) Except as stated in HPI: all other systems reviewed are Neg Past Family Social History Past Medical History BPH Hypogonadism Diabetes Hypertension Past Surgical History Status post appendectomy Reported Medications Refer to EMR Allergies: Coded Allergies: No Known Allergies (Verified Allergy, Unknown, 05/26/17) Active Ordered Medications Refer to EMR Family History Reviewed and noncontributory Social History Occasional alcohol use Denies tobacco or history intravenous drug abuse. Physical Exam Vital Signs Date Time Temp Pulse Resp B/P (MAP) Pulse Ox O2 Delivery O2 Flow Rate FiO2 05/27/17 12:00 97.1 74 20 144/87 (106) 94 05/27/17 08:00 96.8 75 20 163/83 (109) 93 05/27/17 01:30 99.5 71 18 147/93 (111) 93 05/27/17 01:18 82 18 98 05/27/17 01:17 82 18 98 Room Air 05/27/17 00:10 78 18 154/80 (104) 98 Room Air 05/26/17 22:00 78 18 166/82 (110) 98 Room Air 05/26/17 19:42 84 18 160/84 (109) 98 Room Air Physical Exam GENERAL: This is a well-nourished, well-developed patient, in no apparent distress. SKIN: No rashes, ecchymoses or lesions. Cool and dry. HEAD: Atraumatic. Normocephalic. No temporal or scalp tenderness. EYES: Pupils equal round and reactive. Extraocular motions intact. No scleral icterus. No injection or drainage. ENT: Nose without bleeding, purulent drainage or septal hematoma. Throat without erythema, tonsillar hypertrophy or exudate. Uvula midline. Airway patent. NECK: Trachea midline. No JVD or lymphadenopathy. Supple, nontender, no meningeal signs. CARDIOVASCULAR: Regular rate and rhythm without murmurs, gallops, or rubs. RESPIRATORY: Clear to auscultation. Breath sounds equal bilaterally. No wheezes , rales, or rhonchi. GASTROINTESTINAL: Abdomen soft, non-tender, nondistended. No hepato-splenomegaly , or palpable masses. No guarding. GENITOURINARY: No CVA tenderness, bladder not distended MUSCULOSKELETAL: Extremities without clubbing, cyanosis, or edema. No joint tenderness, effusion, or edema noted. No calf tenderness. Negative Homans sign bilaterally. NEUROLOGICAL: Awake and alert. Cranial nerves II through XII intact. Motor and sensory grossly within normal limits. Five out of 5 muscle strength in all muscle groups. Normal speech. Lab results reviewed: Yes Laboratory Tests Test 05/26/17 18:45 05/26/17 19:40 05/27/17 06:00 White Blood Count 8.0 6.7 Red Blood Count 4.83 4.15 Hemoglobin 12.9 11.0 Hematocrit 40.6 34.5 Mean Corpuscular Volume 84.1 83.2 Mean Corpuscular Hemoglobin 26.8 26.5 Mean Corpuscular Hemoglobin Concent 31.9 31.9 Red Cell Distribution Width 17.0 15.7 Platelet Count 313 271 Mean Platelet Volume 7.3 7.9 Neutrophils (%) (Auto) 68.7 66.1 Lymphocytes (%) (Auto) 15.4 18.3 Monocytes (%) (Auto) 10.9 10.0 Eosinophils (%) (Auto) 4.5 5.1 Basophils (%) (Auto) 0.5 0.5 Neutrophils # (Auto) 5.5 4.5 Lymphocytes # (Auto) 1.2 1.2 Monocytes # (Auto) 0.9 0.7 Eosinophils # (Auto) 0.4 0.3 Basophils # (Auto) 0.0 0.0 CBC Comment DIFF FINAL DIFF FINAL Differential Comment Blood Urea Nitrogen 42 35 Creatinine 2.60 2.40 Random Glucose 90 152 Calcium Level 9.2 8.4 Sodium Level 137 137 Potassium Level 4.4 4.4 Chloride Level 102 102 Carbon Dioxide Level 29.0 29.1 Anion Gap 6 6 Estimat Glomerular Filtration Rate 25 27 Urine Color YELLOW Urine Turbidity CLEAR Urine pH 5.5 Urine Specific [place] 1.023 Urine Protein TRACE Urine Glucose (UA) NEG Urine Ketones NEG Urine Occult Blood NEG Urine Nitrite NEG Urine Bilirubin NEG Urine Leukocyte Esterase NEG Urine WBC 0-2 Urine Squamous Epithelial Cells 0-5 Urine Amorphous Sediment SMALL Urine Mucus OCC Microscopic Urinalysis Comment CULT NOT INDICATED Total Protein 7.3 Albumin 3.1 Alkaline Phosphatase 76 Aspartate Amino Transf (AST/SGOT) 17 Alanine Aminotransferase (ALT/SGPT) 33 Total Bilirubin 0.9 Result Diagram: 05/27/17 0600 05/27/17 0600 Personally reviewed images: Yes Imaging Last Impressions Renal Ultrasound 05/27/17 0000 Signed Impressions: Service Date/Time: Saturday, May 27, 2017 14:35 - CONCLUSION: 1. Mild prominence left collecting system. 2. Nonobstructing calculus lower pole left kidney measures 10 mm. 3. Kidneys are borderline echogenic which can be seen with medical renal disease. Grady Hodge MD Abdomen/Pelvis CT 05/26/17 1833 Signed Impressions: Service Date/Time: Friday, May 26, 2017 19:43 - CONCLUSION: 1. Acute obstructive uropathy of the left mid ureter secondary to a 4 mm calcified calculus resulting in mild ureteral pelvocaliectasis on the left. 2. 5 mm calcified nonobstructing lower pole left renal calculus. 3. 2.3 cm right adrenal nodule consistent with possible adrenal adenoma. 4. Uncomplicated colonic diverticulosis. 5. Degenerative changes throughout the thoracic and lumbar spine. 6. Enlarged prostate. Alirio Easton MD Assessment and Plan Assessment and Plan Urologic impression: #1 obstructing 4 mm left midureteral calculus that should pass spontaneously #2 5 mm left lower pole renal calculus Recommendations: #1 continue with analgesic support #2 continue with Flomax #3 continue to strain urine until stone #4 may discharge home when pain managed with oral medications #5 office follow up within the next 1-2 weeks [id number] Problem Qualifiers (1) Abdominal pain: Qualified Codes: R10.32 - Left lower quadrant pain Emmanuel Harris MD May 27, 2017 17:20
[2017-05-27] MEDS ORDERED: cloNIDine HCL 0.1 MG TAB PO ONE (22:15)
[2017-05-28] VITALS: BP 181/101; PULSE 79; RESP 20; TEMP 96.9; O2SAT 95
[2017-05-28 01:00] VITALS: BP 156/81
[2017-05-28] MEDS: MORPHINE SULFATE 2 MG/ML INJ IV PUSH PRN (02:18)
[2017-05-28] MEDS: SODIUM CHLORIDE 0.9% FLUSH 10 ML FLUSH IV FLUSH PRN (02:18)
[2017-05-28 06:39] LABS: AUTOMATED NEUTROPHIL # 5.4 TH/MM3 (1.8-7.7); BASOPHIL % 0.5 % (0.0-2.0); EOSINOPHIL # 0.4 TH/MM3 (0-0.4); EOSINOPHIL % 5.2 % (0.0-4.0); HEMATOCRIT 34.9 % (39.0-51.0); HEMOGLOBIN 11.1 GM/DL (13.0-17.0); LYMPHOCYTE # 1.3 TH/MM3 (1.0-4.8); MEAN CELL VOLUME 83.9 FL (80.0-100.0); MEAN CORPUSCULAR HEMOGLOBIN 26.7 PG (27.0-34.0); MEAN CORPUSCULAR HGB CONC 31.9 % (32.0-36.0); MEAN PLATELET VOLUME 7.5 FL (7.0-11.0); MONO % 8.7 % (0.0-8.0); MONOCYTE # 0.7 TH/MM3 (0-0.9); NEUT % 68.6 % (16.0-70.0); PLATELET COUNT 270 TH/MM3 (150-450); RED BLOOD COUNT 4.16 MIL/MM3 (4.50-5.90); RED CELL DISTRIBUTION WIDTH 16.3 % (11.6-17.2); WHITE BLOOD COUNT 7.8 TH/MM3 (4.0-11.0)
[2017-05-28] MEDS: SODIUM CHLOR 0.9% 1000 ML INJ 1,000 ML IV SCH (06:39)
[2017-05-28] MEDS: GLIMEPIRIDE 2 MG TAB PO SCH (06:39)
[2017-05-28 06:41] LABS: CALCIUM 8.6 MG/DL (8.5-10.1)
[2017-05-28 06:42] LABS: BICARBONATE 27.2 MEQ/L (21.0-32.0)
[2017-05-28 06:45] LABS: CREATININE 1.9 MG/DL (0.60-1.30)
[2017-05-28] MEDS: MAGNESIUM HYDROXIDE SUSP 30 ML CUP PO PRN (06:46)
[2017-05-28 08:00] VITALS: BP 187/122; PULSE 82; RESP 16; TEMP 97.3; O2SAT 96
[2017-05-28] MEDS ORDERED: cloNIDine HCL 0.1 MG TAB PO PRN (08:30)
[2017-05-28] MEDS: INSULIN ASPART SUPPLEMENTAL SCALE SQ SCH ×2 (08:33→12:00)
[2017-05-28] MEDS: DOCUSATE SODIUM 50 MG/SENNA 8.6 MG TAB PO SCH (08:36)
[2017-05-28] MEDS: SODIUM CHLORIDE 0.9% FLUSH 10 ML FLUSH IV FLUSH SCH (08:36)
[2017-05-28] MEDS: TAMSULOSIN HCL 0.4 MG CAP PO SCH (08:36)
[2017-05-28] MEDS ORDERED: METOPROLOL TARTRATE 25 MG TAB PO SCH (09:00)
[2017-05-28] MEDS ORDERED: PNEUMOCOCCAL POLYVALENT INJ 25 MCG/0.5 ML SYR IM ONE (10:00)
[2017-05-28] MEDS ORDERED: GLIM1TAB PO (10:10)
--- NOTE | 2017-05-28 10:21 | HHI.DS ---
Discharge Summary Admission Date May 26, 2017 at 21:37 Discharge Date: May 28, 2017 Admitting Diagnosis obstructive uropathy, acute renal insufficiency (1) Obstructive uropathy ICD Code: N13.9 - Obstructive and reflux uropathy, unspecified Diagnosis: Principal Status: Acute (2) Abdominal pain ICD Code: R10.9 - Unspecified abdominal pain Diagnosis: Principal Status: Acute (3) Acute renal insufficiency ICD Code: N28.9 - Disorder of kidney and ureter, unspecified Diagnosis: Principal Status: Acute Procedures none Brief History - From Admission Written by Fred Choe, acting as scribe for Dr. Gonzalez on 05/27/17 at 12: 26. 62 year-old male with known history of hypertension, diabetes, enlarged prostate, low testosterone who presented to the hospital the request of urgent care physician because of dark color stools and abdominal pain. Patient indicates that his symptoms started one week ago. After going out and having a steak dinner, faroese fries, clam chowder, 2 beers, 2 Jell-O shots he woke up at 3 AM in the morning with severe/sudden onset of stabbing left lower quadrant abdominal pain. Patient went to the bathroom and tried to have a bowel movement without success. He had some nausea and dry heaves without any improvement of his abdominal pain. Patient just thought he had some food poisoning from the clam chowder and constipated. The patient indicates that he normally has a bowel movement daily. He purchased some MiraLAX, Pepto-Bismol, Ex -Lax and used the medications. Over the next couple days he had noticed that he had been having abdominal discomfort with distention, bloating without any bowel movement. 2 days later the patient finally did have a bowel movement when he stated that his stools were black in coloration. The patient goes to a local urgent care to get his every 2 week testosterone injection. When he was there he spoke with the physician about his abdominal discomfort, constipation, dark color stools. Because of the mention of dark color stools it was recommended by the urgent care physician that the patient go to the ER for evaluation. Patient presents emergency department had workup done. CT the abdomen did indicate obstructive uropathy of the left ureter. Hemoccult was performed which was negative. Laboratory studies do indicate azotemia, acute versus chronic is unknown. Patient was recommended admission for the obstructive uropathy with urological consultation. 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 He did see his primary medical doctor prior to leaving [place] and at that time they were anticipating scheduling him for colonoscopy when he return in June. At the time evaluating the patient patient states that his pain is much improved. 2/10 on a pain scale. He has not had a bowel movement today. CBC/BMP: 05/28/17 0550 05/28/17 0550 Significant Findings Laboratory Tests Test 05/26/17 18:45 05/26/17 19:40 05/27/17 06:00 05/28/17 05:50 Hemoglobin 12.9 GM/DL (13.0-17.0) 11.0 GM/DL (13.0-17.0) 11.1 GM/DL (13.0-17.0) Mean Corpuscular Hemoglobin 26.8 PG (27.0-34.0) 26.5 PG (27.0-34.0) 26.7 PG (27.0-34.0) Mean Corpuscular Hemoglobin Concent 31.9 % (32.0-36.0) 31.9 % (32.0-36.0) 31.9 % (32.0-36.0) Monocytes (%) (Auto) 10.9 % (0.0-8.0) 10.0 % (0.0-8.0) 8.7 % (0.0-8.0) Eosinophils (%) (Auto) 4.5 % (0.0-4.0) 5.1 % (0.0-4.0) 5.2 % (0.0-4.0) Blood Urea Nitrogen 42 MG/DL (7-18) 35 MG/DL (7-18) 29 MG/DL (7-18) Creatinine 2.60 MG/DL (0.60-1.30) 2.40 MG/DL (0.60-1.30) 1.90 MG/DL (0.60-1.30) Estimat Glomerular Filtration Rate 25 ML/MIN (>89) 27 ML/MIN (>89) 36 ML/MIN (>89) Red Blood Count 4.15 MIL/MM3 (4.50-5.90) 4.16 MIL/MM3 (4.50-5.90) Hematocrit 34.5 % (39.0-51.0) 34.9 % (39.0-51.0) Random Glucose 152 MG/DL (74-106) Albumin 3.1 GM/DL (3.4-5.0) Calcium Level 8.4 MG/DL (8.5-10.1) Imaging Last Impressions Renal Ultrasound 05/27/17 0000 Signed Impressions: Service Date/Time: Saturday, May 27, 2017 14:35 - CONCLUSION: 1. Mild prominence left collecting system. 2. Nonobstructing calculus lower pole left kidney measures 10 mm. 3. Kidneys are borderline echogenic which can be seen with medical renal disease. Grady Hodge MD Abdomen/Pelvis CT 05/26/17 1833 Signed Impressions: Service Date/Time: Friday, May 26, 2017 19:43 - CONCLUSION: 1. Acute obstructive uropathy of the left mid ureter secondary to a 4 mm calcified calculus resulting in mild ureteral pelvocaliectasis on the left. 2. 5 mm calcified nonobstructing lower pole left renal calculus. 3. 2.3 cm right adrenal nodule consistent with possible adrenal adenoma. 4. Uncomplicated colonic diverticulosis. 5. Degenerative changes throughout the thoracic and lumbar spine. 6. Enlarged prostate. Alirio Easton MD PE at Discharge GENERAL: Well-developed, well-nourished. alert and orientated CARDIAC: Regular rhythm, regular rate. No murmurs LUNGS: Clear to auscultation bilaterally. No wheeze, rhonchi or rales. ABDOMEN: Soft, NT, no guarding or rebound. no CVA tenderness EXTREMITIES: No edema, pulses are equal bilaterally. NEUROLOGY: Mood and affect appear appropriate.moves all his extremities Pt update on day of discharge Pt feeling well. No pain at this time. No nausea or vomiting. Had a BM small one yesterday and passing flatus Hospital Course 62-year-old male who presented wObstructive uropathy. CT scan does indicate obstructive uropathy and left mid ureter secondary 4 mm calcified calculus and enlarged prostate. Pt was evaluated by urology and was cleared for d/c. Pt needs f/u w urology as an outpatient in 1-2 weeks. Acute on chronic renal insufficiency: Medical team contacted pt's PCP Dr. Saldaña at [phone] and spoke w Joanna CHANDLER. Pt's Baseline BUN/Cr 40/1.94. On day of discharge pt's BUN/Cr 29/1.90. I will hold metformin and have adjusted pt 's glimepiride due to his kidney function. It has been stressed to pt the importance to f/u w PCP upon discharge. Pt will try to establish care here locally but already has an appt w his PCP back home in june. Dark color stools: Most Likely secondary to Pepto-Bismol use. Hemoccult was negative. Patient already going to be scheduled in [place] for colonoscopy upon his return. Avoid NSAIDs Pt Condition on Discharge: Stable Discharge Disposition: Discharge Home Discharge Time: > 30 minutes Discharge Instructions DIET: Follow Instructions for: Heart Healthy Diet, Diabetic Diet Activities you can perform: Regular-No Restrictions Follow up Referrals: PCP Follow-up - 1 Week Urology - 2 Weeks New Medications: Glimepiride (Glimepiride) 1 Mg Tab 1 MG PO DAILY for Blood Sugar Management, #30 TAB 0 Refills Take with breakfast or first main meal Oxycodone-Acetaminophen (Percocet) 5-325 mg Tab 1-2 TAB PO Q6H PRN for PAIN, #30 TAB 0 Refills Phenazopyridine (Pyridium) 100 Mg Tab 100 MG PO Q8H PRN for DYSURIA, #30 TAB 0 Refills Tamsulosin (Tamsulosin) 0.4 Mg Cap 0.4 MG PO HS for ureteral calculus, #30 CAP 0 Refills Continued Medications: Amlodipine (Amlodipine) 10 Mg Tab 10 MG PO DAILY for Blood Pressure Management, #30 TAB 0 Refills Lisinopril (Lisinopril) 10 Mg Tab 10 MG PO DAILY, #30 TAB 0 Refills Metoprolol Tartrate (Metoprolol Tartrate) 25 Mg Tab 25 MG PO DAILY, #30 TAB 0 Refills Testosterone Enanthate Inj (Testosterone Enanthate Inj) 200 Mg/Ml Inj 100 MG IM Q15D for Hormone Replacement, #1 VIAL 0 Refills Discontinued Medications: Glimepiride (Glimepiride) 2 Mg Tab 2 MG PO BIDAC for Blood Sugar Management, #60 TAB 0 Refills Meloxicam (Meloxicam) 15 Mg Tab 15 MG PO DAILY for Arthritis Pain, #30 TAB 0 Refills Metformin (Metformin) 500 Mg Tab 500 MG PO BIDPC for Blood Sugar Management, #60 TAB 0 Refills Sil Gonzalez MD May 28, 2017 10:21
[2017-05-28 11:13] VITALS: BP 166/110
[2017-05-28 12:00] VITALS: BP 176/109; PULSE 76; RESP 18; TEMP 98; O2SAT 95
[2017-05-28 13:22] VITALS: BP 154/86
== END 2017-05-28 14:45 | disposition home or self-care (01) | DRG 694 ==
LOC: PHED 16:30 → PHEDA 21:37 → PH3A 05-27 01:06
PROVIDERS: ADMIT Hospitalist; ATTEND Hospitalist
DX: N13.8 Other obstructive and reflux uropathy (principal); N17.9 Acute kidney failure, unspecified; E11.22 Type 2 diabetes mellitus with diabetic chronic kidney disease; Z68.41 Body mass index [BMI] 40.0-44.9, adult; N40.1 Benign prostatic hyperplasia with lower urinary tract symptoms; N20.2 Calculus of kidney with calculus of ureter; I12.9 Hypertensive chronic kidney disease with stage 1 through stage 4 chronic kidney disease, or unspecified chronic kidney disease; N18.9 Chronic kidney disease, unspecified; E66.9 Obesity, unspecified; E29.1 Testicular hypofunction; Z79.84 Long term (current) use of oral hypoglycemic drugs; Z23 Encounter for immunization
CPT/HCPCS: 74176; 76775; 80048; 80053; 81001; 82948; 85025; 90471; 90732; 96374; 96375; G0009; J2270; J2405; J7030